=== PATIENT | female | born 1995 | race Caucasian/White ===

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

== ENCOUNTER 2017-11-04 12:33 | Emergency (ER) | payer OTHER ==
[~2017-11-04] VITALS: Ht 177.8 cm; Wt 77.1 kg
[~2017-11-04 12:33] MED LIST changes: +AMOXICILLIN500 M3 PO; +OMNICEF300 MG PO
[2017-11-04] MEDS ORDERED: NAPROSYN500 MG PO (12:48)
[2017-11-04] MEDS ORDERED: AMOXICILLIN500 M2 PO (12:48)
== END 2017-11-04 12:54 | disposition home or self-care (01) ==
LOC: ED 12:33
DX: K08.89 Other specified disorders of teeth and supporting structures (principal)

== ENCOUNTER 2020-04-14 12:28 | Emergency (ER) | payer OTHER ==
[~2020-04-14] VITALS: Wt 81.6 kg
[~2020-04-14 12:28] MED LIST changes: +AMOXICILLIN500 M2 PO
[2020-04-14] MEDS ORDERED: CLEOCIN HCL150 MG PO (13:09)
[2020-04-14] MEDS ORDERED: IBU800 MG PO (13:09)
== END 2020-04-14 13:33 | disposition home or self-care (01) ==
LOC: ED 12:28
DX: K04.7 Periapical abscess without sinus (principal)